=== PATIENT | male | born 2000 | race Caucasian/White ===

== ENCOUNTER 2023-07-12 10:00 | Outpatient (CLI) | payer OTHER ==
--- NOTE | 2023-07-12 11:19 | XRAY Report ---
PROCEDURE: Wrist 3+V LT INDICATIONS: WRIST PAIN, LEFT TECHNIQUE: 4 views of the wrist were acquired. COMPARISON: None. FINDINGS: Bones: Single screw transfixing the scaphoid bone is intact with no perihardware lucency to suggest hardware loosening. No increased sclerosis of the scaphoid bone. No fractures or dislocations. Anatom ic alignment. No suspicious bony lesions. Soft tissues: No suspicious soft tissue calcifications or masses. IMPRESSION: 1.No acute bony abnormality. If there is anatomic snuff box tenderness, consider wrist immobilization and repeat radiographs in 10-14 days or cross-sectional imaging now. If pain persists with conservat nayeli management, consider repeat radiographs in 10-14 days or cross-sectional imaging. 2.Single screw transfixing the scaphoid bone is intact with without complication. 3.No increased sclerosis of the scaphoid bone to suggest avascular necrosis. Reviewed by: Chantelle Soriano MD on 07/12/2023 11:18 AM PDT Approved by: Chantelle Soriano MD on 07/12/2023 11:18 AM PDT Station ID: [id number]
== END 2023-07-12 10:15 | disposition home or self-care (01) ==
LOC: DI.N 10:00
PROVIDERS: ATTEND Family Medicine
DX: M25.532 Pain in left wrist (principal)